=== PATIENT | female | born 1945 | race Caucasian/White ===

== ENCOUNTER 2018-09-15 18:22 | Inpatient (IN) | payer MEDICARE ==
[~2018-09-15] VITALS: Ht 154.9 cm; Wt 78.3 kg
[2018-09-15 19:15] LABS: Chloride (POC) 102 mmol/L (98-108); Creatinine (POC) 9.2 mg/dL (0.6-1.0); Glucose (ISTAT POC) 101 mg/dL (70-99); Hemoglobin (POC) 6.8 g/dL (12.0-16.0); Potassium (POC) 6.1 mmol/L (3.5-5.5); Sodium (POC) 138 mmol/L (135-148); Total CO2 (POC) 23 mmol/L (21-32)
[2018-09-15] MEDS ORDERED: Lopressor 25 mg25 MG PO (20:13)
[2018-09-15] MEDS ORDERED: Rena-Vite Tabl0.8 MG PO (20:15)
[2018-09-15] MEDS ORDERED: VITAMIN D250000 UNIT PO (20:24)
[2018-09-15 21:50] LABS: Albumin, Blood 2.7 g/dL (3.4-5.0); Albumin/Globulin Ratio 0.9 (0.8-1.8); Bilirubin, Total 0.5 mg/dL (0.1-1.0); Bun/Creatinine Ratio 13.9 (12.0-20.0); Calcium, Blood 7.3 mg/dL (8.5-10.1); Creatinine, Blood 8.85 mg/dL (0.40-1.00); Potassium, Blood 6.2 mmol/L (3.5-5.5); Total Protein, Blood 5.7 g/dL (6.4-8.2)
[2018-09-15 22:43] LABS: BASOPHILS ABSOLUTE AUTO 0.01 K/mm3 (0.00-0.23); BASOPHILS PERCENT AUTO 0 % (0-2); EOSINOPHILS PERCENT AUTO 0 % (0-6); Hematocrit 20.6 % (33.0-51.0); Hemoglobin 6.7 g/dL (11.5-16.0); IMMATURE GRAN ABSOLUTE AUTO 0.04 K/mm3 (0.00-0.10); IMMATURE GRAN PERCENT AUTO 0 % (0-1); LYMPHOCYTES ABSOLUTE AUTO 1.06 K/mm3 (0.84-5.20); LYMPHOCYTES PERCENT AUTO 10 % (21-46); MONOCYTES ABSOLUTE AUTO 0.97 K/mm3 (0.16-1.47); MONOCYTES PERCENT AUTO 9 % (4-13); Mean Corpuscular HGB 33.7 pg (26.0-34.0); Mean Corpuscular HGB Conc 32.5 g/dL (31.5-36.5); Mean Corpuscular Volume 104 fL (80-100); Mean Platelet Volume 13.6 fL (9.1-12.4); NEUTROPHILS ABSOLUTE AUTO 8.85 K/mm3 (1.96-9.15); NEUTROPHILS PERCENT AUTO 81 % (41-73); Platelet Count 125 K/mm3 (150-400); RDW Standard Deviation 55.9 fL (35.1-46.3); Red Blood Cell Count 1.99 M/mm3 (3.80-5.20); White Blood Cell Count 10.93 K/mm3 (4.00-11.30)
[2018-09-15 23:38] LABS: Hematocrit 26.3 % (33.0-51.0); Hemoglobin 8.9 g/dL (11.5-16.0)
--- NOTE | 2018-09-16 00:13 | NUR ---
DIALYSIS STAT TX ORDERED FOR PT. HYPOTENSIVE. FLUID OVERLOAD. R/O GI BLEED. ELEVATED POTASSIUM, AND LOW HGB. GAVE 2 UNITS OF PRBC WITH TX. WHEN BP DROPPED IN THE 50'S SOPHIE. DR NICHOLSON ORDERED 1 LITER BOLUS OF SALINE AND DC TX.
--- NOTE | 2018-09-16 02:19 | NUR ---
ASSUMED PT CARE AT 2050 PT ARRIVED ON UNIT VIA STRETCHER; SBP 80'S. PT NEEDED TO USE THE RESTROOM UPON ARRIVAL. DENIED ANY DIZZINESS OR LIGHTHEADEDNESS. TWO PERSON STAND PIVOT TO BSC. PT HAD WATERY DARK, MAROON STOOL WITH CLOTS NOTED; TOTAL MEASURED STOOL WAS 200. ASSISTED BACK TO BED AFTER ILIANA CARE WAS PERFORMED. VITAL SIGNS OBTAINED WITH SBP 59. INITIATED 500CC BOLUS PER ARAGON ORDERS. PT ALERT AND ORIENTED X4; ABLE TO MAKE NEEDS KNOWN. PT STATES HER BP IS GENERALLY HIGH PRIOR TO DIALYSIS AND LOW AFTER DIALYSIS, BUT SHE IS NOT CHRONICALLY LOW. ATA, ADVERTISING OPERATIONS MANAGER, IN ROOM AT BEDSIDE PREPARING DIALYSIS MACHINE AT 2114. DR. NICHOLSON AT BEDSIDE AT 2129 UPDATING PT ON EXPECTED COURSE OF TREATMENTS. DR. NICHOLSON VERBALLY ORDERED TO TRANSFUSE PT IS HER HEMOGLOBIN WAS BETWEEN 7-8; PLACED NURSING NOTIFY TO TRANSFUSE WITH 2 UNITS IF UNDER 8. DIALYSIS STARTED AT 2207 WITH PT ALSO RECEIVING FIRST UNIT OF BLOOD; DR. NICHOLSON WANTS PT TO HAVE A TOTAL OF 2 UNITS TRANSFUSED DURING DIALYSIS. DIALYSIS TERMINATED EARLY D/T SBP'S 50'S WITH MAP'S LOW 40'S; BHARAT NOTIFIED AND ORDERED 1L BOLUS AND ALBUMIN. PT HAS HAD A TOTAL OF 2 STOOLS SINCE ADMIT; BOTH DARK MAROON WITH CLOTS NOTED. PT HAS HAD A TOTAL OF 1.5L BOLUSED SINCE ADMIT TO THE UNIT D/T LOW BP'S AND LOW MAP'S; CALCIUM GLUCONATE INFUSED; ALBUMIN; 2 UNITS PRBC'S; DESMOPRESSIN; AND MAINTENANCE NS AT 75MLS/HR. PROTONIX IS ALSO INFUSING AT 10MLS/HR. SBP'S ARE FINALLY IN THE 90-100'S. MAP STILL REMAINS BORDERLINE AT 60. CALL LIGHT IS WITHIN REACH. PT IS PLEASANT AND COOPERATIVE WITH CARE. ABLE TO MAKE NEEDS KNOWN.
[2018-09-16 04:25] LABS: Adenovirus F 40/41 Not Detected (NOT DETECT); Astrovirus Not Detected (NOT DETECT); Campylobacter Sp Not Detected (NOT DETECT); Cryptosporidium Not Detected (NOT DETECT); Cyclospora Cayetanensis Not Detected (NOT DETECT); E. Coli O157 Not Detected (NOT DETECT); Entamoeba Histolytica Not Detected (NOT DETECT); Enteroaggregative E. coli-EAEC Not Detected (NOT DETECT); Enteropathogenic E. coli-EPEC Not Detected (NOT DETECT); Enterotoxigenic E. coli-ETEC Not Detected (NOT DETECT); Giardia Lamblia Not Detected (NOT DETECT); Norovirus GI/GII Not Detected (NOT DETECT); Plesiomonas Shigelloides Not Detected (NOT DETECT); Rotavirus A Not Detected (NOT DETECT); Salmonella Sp Not Detected (NOT DETECT); Sapovirus Not Detected (NOT DETECT); Shiga Toxin-prod E. coli-STEC Not Detected (NOT DETECT); Shigella/Enteroin E. coli-EIEC Not Detected (NOT DETECT); Vibrio Cholerae Not Detected (NOT DETECT); Vibrio Sp Not Detected (NOT DETECT); Yersinia Enterocolitica Not Detected (NOT DETECT)
--- NOTE | 2018-09-16 05:00 | NUR ---
NOTIFIED DR. NICHOLSON REGARDING CONSISTENT LOW BP'S. NEW ORDERS FOR STAT LABS, WHICH WERE CURRENTLY BEING DRAWN, WELL TO INCREASE NS FROM 75MLS/HR TO 125MLS/HR, WELL TO UPDATE WITH LAB RESULTS.
[2018-09-16 05:04] LABS: Hematocrit 24.4 % (33.0-51.0); Hemoglobin 7.9 g/dL (11.5-16.0); Mean Corpuscular HGB Conc 32.4 g/dL (31.5-36.5); Mean Platelet Volume 12.4 fL (9.1-12.4); Platelet Count 90 K/mm3 (150-400); RDW Coefficient Variation 16.5 % (11.7-14.2); RDW Standard Deviation 58.5 fL (35.1-46.3); Red Blood Cell Count 2.47 M/mm3 (3.80-5.20); White Blood Cell Count 9.32 K/mm3 (4.00-11.30)
[2018-09-16 05:38] LABS: Alanine Aminotransfer (ALT/SGP 16 U/L (12-78); Albumin/Globulin Ratio 1.2 (0.8-1.8); Alk Phos 78 U/L (50-136); Anion Gap 14 mmol/L (6-16); Aspartate Aminotrans (AST/SGOT 13 U/L (12-37); Bilirubin, Total 0.6 mg/dL (0.1-1.0); Blood Urea Nitrogen 80 mg/dL (8-24); Bun/Creatinine Ratio 12.4 (12.0-20.0); CO2, Blood 24 mmol/L (21-32); Calcium, Blood 7.5 mg/dL (8.5-10.1); Chloride, Blood 106 mmol/L (98-108); Creatinine, Blood 6.44 mg/dL (0.40-1.00); Globulin, Blood 2.6 g/dL (2.2-4.0); Glomerular Filtration Rate 7 (60-); Glucose, Blood 110 mg/dL (70-99); Magnesium, Blood 1.7 mg/dL (1.6-2.4); Phosphorus, Blood 3.3 mg/dL (2.5-4.9); Sodium, Blood 144 mmol/L (136-145); Total Protein, Blood 5.6 g/dL (6.4-8.2)
[2018-09-16 05:47] LABS: Mean Corpuscular Volume 99 fL (80-100)
--- NOTE | 2018-09-16 06:00 | NUR ---
CALL PLACED TO DR. NICHOLSON UPDATED ON LAB RESULTS AND CONTINUOUS LOW BP'S. NEW ORDERS FOR ONE AMP CALCIUM GLUCONATE; ONE UNIT OF PRBC'S; WITH STAT H&H POST TRANSFUSION; WELL TO KEEP NS AT 125MLS/HR, BUT TURN OFF DURING BLOOD TRANSFUSION, THEN RESUME AT 75MLS/HR.
--- NOTE | 2018-09-16 06:10 | NUR ---
DR. ARAGON AT BEDSIDE ASSESSING PT. NO NEW ORDERS. STATES DR. NICHOLSON CAN KEEP MANAGING PT'S FLUIDS AND BLOOD PRODUCT TO MAINTAIN BLOOD PRESSURES. AWARE OF CONSISTENT LOW BP'S. PT REMAINS ALERT AND ORIENTED AND ABLE TO MAKE HER NEEDS KNOWN.
--- NOTE | 2018-09-16 06:21 | NUR ---
END OF SHIFT SUMMARY PT HAS CONTINUED HAVING LOOSE, WATERY DARK, MAROON STOOL WITH CLOTS NOTED; APPROXIMATELY 100-200CC EVERY TIME. PT HAS BEEN USING BEDPAN FOR SAFETY AND IS UNDERSTANDING. PROTONIX CONTINUES TO INFUSE AT 10MLS/HR; NS INFUSING AT 125MLS/HR. PT PLACED ON CONTACT ISOLATION PRECAUTIONS D/T GI PANEL COMING BACK POSTIVE FOR C.DIFF; PT UNDERSTANDING OF PRECAUTIONS THAT ARE NECESSARY. CALL LIGHT WITHIN REACH; PT ABLE TO MAKE NEEDS KNOWN; REMAINS ALERT AND ORIENTED.
--- NOTE | 2018-09-16 08:12 | NUR ---
ASSUMED CARE ASSUMED CARE OF PT AT 0700. REPORT RECEIVED FROM ALEM PACHECO. PT IN BED, SLEEPY BUT AROUSES EASILY TO VERBAL STIMULUS, ORIENTED WHEN AWAKE. MONITOR SHOWS SINUS TACH WITH HR 100-110'S, SBP 70-80'S. PT RECEIVING 3RD UNIT OF PRBC'S, PROTONIX GTT. PT REPORTING CRAMPING ABDOMINAL PAIN, DENIES OTHER PAIN, DENIES SHORTNESS OF BREATH. RECTAL TUBE INSERTED - BRIGHT RED LIQUID RETURN. PT HAS LEFT EJ IV AND R WRIST IV. PT USING CALL LIGHT FOR NEEDS. WILL CONTINUE TO MONITOR CLOSELY.
--- NOTE | 2018-09-16 08:21 | NUR ---
DR. BHARAT NICHOLSON ROUNDED ON PT. ORDERS RECEIVED TO FINISH 3RD UNIT OF BLOOD AND THEN DRAW STAT H&H.
--- NOTE | 2018-09-16 08:21 | NUR ---
DR. TANG ROUNDED ON PT.
[2018-09-16 09:49] LABS: Hematocrit 26.6 % (33.0-51.0); Hemoglobin 8.8 g/dL (11.5-16.0)
[2018-09-16 10:04] LABS: Bun/Creatinine Ratio 12.5 (12.0-20.0); Calcium, Blood 7.6 mg/dL (8.5-10.1); Creatinine, Blood 6.74 mg/dL (0.40-1.00); Potassium, Blood 5.1 mmol/L (3.5-5.5)
[2018-09-16 10:26] LABS: International Normalized Ratio 1.07; Prothrombin Time Results 11.3 Sec (9.7-11.5)
--- NOTE | 2018-09-16 12:29 | NUR ---
ANESTHESIA WOULD LIKE PT TO RECEIVE 2 MORE UNITS PRBC PRIOR TO ENDOSCOPY DUE TO ONGOING HYPOTENSION. BLOOD BANK NOTIFIED AND AWAITING BLOOD SLIPS AT THIS TIME.
--- NOTE | 2018-09-16 13:49 | NUR ---
DR. DONNA THOMPSON ROUNDED ON PT. PLAN TO COMPLETE TRANSFUSION OF 4TH UNIT OF BLOOD AND THEN RE-CHECK H&H. PT CURRENTLY TOO UNSTABLE FOR ANESTHESIA FOR ENDOSCOPY. IF HEMOGLOBIN STABLE, PLAN FOR ENDOSCOPY IN A.M., OTHERWISE PLAN TO TRANSFUSE 5TH UNIT AND PROCEED WITH ENDOSCOPY THIS EVENING. PT AGREEABLE TO PLAN OF CARE.
[2018-09-16 15:58] LABS: Hematocrit 27.1 % (33.0-51.0); Hemoglobin 9.2 g/dL (11.5-16.0)
--- NOTE | 2018-09-16 16:09 | NUR ---
DR. THOMPSON CALL TO DR. THOMPSON WITH UPDATE ON LAB RESULTS. ORDERS TO HOLD 5TH UNIT OF PRBC'S AT THIS TIME AND RE-CHECK H&H AT 2000 TONIGHT. PT MAY HAVE CLEAR LIQUIDS. PLAN FOR PROBABLE ENDOSCOPY IN THE MORNING.
--- NOTE | 2018-09-16 18:31 | NUR ---
SHIFT SUMMARY PT HAS REMAINED HYPOTENSIVE IN THE 80'S T/O SHIFT, THOUGH CONTINUES TO BE ALERT AND ORIENTED. PT HAS RECEIVED TOTAL OF [address] THOMPSON CONSULTED ON PT TODAY AND PLANS FOR ENDOSCOPY IN THE MORNING. PT HAS RECTAL TUBE IN PLACE DRAINING BLACK/RED LIQUID TO GRAVITY, 200 ML TOTAL OUTPUT FOR THE SHIFT. PT IS ANURIC AT BASELINE - NO URINE OUTPUT THIS SHIFT. PT CONTINUES WITH 2 PIV'S WITH NS AT 75ML/HR AND PROTONIX GTT INFUSING. PT USING CALL LIGHT APPROPRIATELY FOR NEEDS, POSITIONING SELF IN BED. SCD'S IN PLACE. WILL CONTINUE TO MONITOR PT AND GIVE HANDOFF REPORT TO ONCOMING RN WHEN AVAILABLE.
--- NOTE | 2018-09-16 19:29 | NUR ---
ASSUMED CARE PT SITTING UP IN BED, CURRENTLY A&0 X 3, DENIES COMPLAINTS. REPORTS BEING SICK SINCE LAST WEDNESDAY. PT NPO AT MIDNIGHT WITH EGD PLANNED FOR TOMORROW IF BP AND LABS REMAIN STABLE OVERNIGHT. RECTAL TUBE IN PLACE WITH DARK MAROON FLUID IN BAG. NS AT 75ML/HR AND PROTONIX AT 10ML/HR. BP LOW BUT PER AM RN, MD'S AWARE AND NOT CONCERNED LONG PT REMAINS ALERT/ORIENTED, ECG SHOWS SR/ST AND SPOT CHECK O2 SATS AT 100%.
[2018-09-16 20:10] LABS: Hematocrit 27.8 % (33.0-51.0); Hemoglobin 9.2 g/dL (11.5-16.0)
[2018-09-17 03:20] LABS: Hematocrit 25.8 % (33.0-51.0); Hemoglobin 8.3 g/dL (11.5-16.0); Mean Corpuscular HGB 31.1 pg (26.0-34.0); Mean Corpuscular HGB Conc 32.2 g/dL (31.5-36.5); Mean Corpuscular Volume 97 fL (80-100); Mean Platelet Volume 12.9 fL (9.1-12.4); NRBC ABSOLUTE 0.03 K/mm3 (0.00-0.02); NRBC Auto 0.4 /100 WBC (0.0-0.2); Platelet Count 64 K/mm3 (150-400); RDW Coefficient Variation 17.3 % (11.7-14.2); Red Blood Cell Count 2.67 M/mm3 (3.80-5.20); White Blood Cell Count 6.73 K/mm3 (4.00-11.30)
[2018-09-17 03:35] LABS: Albumin, Blood 2.6 g/dL (3.4-5.0); Anion Gap 11 mmol/L (6-16); Blood Urea Nitrogen 91 mg/dL (8-24); Bun/Creatinine Ratio 11.6 (12.0-20.0); CO2, Blood 24 mmol/L (21-32); Calcium, Blood 7.1 mg/dL (8.5-10.1); Chloride, Blood 107 mmol/L (98-108); Creatinine, Blood 7.84 mg/dL (0.40-1.00); Glomerular Filtration Rate 5 (60-); Glucose, Blood 82 mg/dL (70-99); Magnesium, Blood 1.6 mg/dL (1.6-2.4); Phosphorus, Blood 3.4 mg/dL (2.5-4.9); Potassium, Blood 4.9 mmol/L (3.5-5.5); Sodium, Blood 142 mmol/L (136-145)
--- NOTE | 2018-09-17 04:31 | NUR ---
UPDATE BP LOW WITH SLEEP WITH SBP 70-80. WHEN AWAKE SBP 90-100. PT REMAINS ASYMPTOMATIC, IS A&O X 4 WAKES TO VOICE AND USES CALL LIGHT APPROPRIATELY.
--- NOTE | 2018-09-17 06:47 | NUR ---
SHIFT SUMMARY NO ACUTE EVENTS OVERNIGHT. PT HAS HAD MINIMAL OUTPUT FROM RECTAL TUBE. PT DOES COMPLAINT OF BURNING TYPE ABD PAIN THAT TRAVELS FROM LEFT MIDDLE QUADRANT TO RIGHT AND PT REPORTS PAIN INCREASES AFTER EATING. PROTONIX CONTINUES AT 10ML/HR AND NS AT 75ML/HR. DR NICHOLSON REVIEWED LABS THIS AM AND ENTERED ORDER FOR 1 UNIT PRBC'S WITH DIALYSIS TODAY. BP REMAINS LOW, ESPECIALLY WITH SLEEP BUT RETURNS TO SBP'S 90-100 WHEN AWAKE, ECG SHOWS SR AND SPOT CHECK O2 SATS 98-100% ON RA.
--- NOTE | 2018-09-17 08:04 | NUR ---
INITIAL ASSESSMENT PATIENT RESTING QUIETLY IN BED UPON ENTERING ROOM. PATIENT ALERT AND ORIENTED X 4, AFEBRILE. PATIENT ON BEDREST HAS BEEN HYPOTENSIVE. PATIENT STATES THAT SHE HAS NO PAIN AT THIS TIME BUT THAT SHE HAS ABOMINAL BURNING INTERMITTENTLY, THAT BECOMES WORSE AFTER EATING. PATIENT SATTING WELL ON RA. DENIES COUGH. SHALLOW BREATHS NOTED. LUNGS CLEAR IN UPPER LOBES AND DIMINISHED IN LOWER LOBES. PATIENT IN SR, HR 70S TO 80S. MAP OVER 65. PULSES STRONG. TRACE PEDAL EDEMA NOTED. SCDS IN PLACE. HYPERACTIVE BS NOTED. RECTAL TUBE IN PLACE, DRAINING RED/ BLACK LIQUID STOOL. PATIENT ANURIC AT BASELINE. BRUISE NOTED TO L SCRUGGS, ABRASION TO R FOOT. AGUILA FISTULA PRESENT- + BRUIT AND THRILL NOTED. PROTONIX DRIP INFUSING AT 10 MLS/ HOUR, NS INFUSING AT 75 MLS/ HOUR. PATIENT HAS BEEN NPO FOR POSSIBLE SCOPE THIS AM. BED LOW, CALL LIGHT IN REACH. WILL CONTINUE TO MONITOR PATIENT FREQUENTLY THROUGHOUT SHIFT.
--- NOTE | 2018-09-17 08:10 | NUR ---
DR. TANG, DR. NICHOLSON, AND DR. THOMPSON HAVE ALL BEEN IN TO SEE PATIENT THIS AM.
--- NOTE | 2018-09-17 08:20 | NUR ---
PATIENT HAD ASYMPTOMATIC, 10 BEAT RUN OF VTACH. DR. THOMPSON AWARE. WILL CONTINUE TO MONITOR.
--- NOTE | 2018-09-17 11:31 | NUR ---
PATIENT REMAINS ALERT AND ORIENTED X 4, AFEBRILE. PATIENT WATCHING TV WITH NO COMPLAINTS. PATIENT REMAINS SATTING WELL ON RA. PATIENT IN SR, HR 70S TO 80S. PATIENT HYPOTENSIVE. MAP OF 57. SBP IN THE 80S. DR'S ARE AWARE OF PATIENT'S LOW BP. NO ACUTE CHANGES TO NOTE ON AT THIS TIME. WILL CONTINUE TO MONITOR.
--- NOTE | 2018-09-17 11:38 | NUR ---
PT BROUGHT INTO PROCEDURE ROOM DUE TO ISOLATION STATUS. Patient confirms NPO status and agrees with scheduled surgery. History, Chart, Medications and Allergies reviewed before start of procedure. MAC CASE, PT ICU STATUS. CONFIRMED WITH BOTH DR. THOMPSON AND DR. FERGUSON PT STABLE TO BE BROUGHT TO THE DEPATRMENT FOR PROCEDURE.
--- NOTE | 2018-09-17 11:40 | NUR ---
PATIENT JUST LEFT UNIT WITH RN TO GO TO SCOPE.
--- NOTE | 2018-09-17 11:45 | NUR ---
09/17/18 1145 Wendie Nunez History, Chart, Medications and Allergies reviewed before start of procedure.ANETHESIA CASE WITH DR. FERGUSON
--- NOTE | 2018-09-17 12:21 | NUR ---
PATIENT RETURNED WITH NURSE FROM SCOPE. PATIENT ALERT AND ORIENTED X 4. VSS. WILL CONTINUE TO MONITOR. DR. THOMPSON IN TO SEE PATIENT.
--- NOTE | 2018-09-17 13:45 | NUR ---
DIALYSIS NURSE IN ROOM.
--- NOTE | 2018-09-17 16:33 | NUR ---
PATIENT RESTING QUIETLY IN BED, WATCHING TV. PATIENT RECEIVING DIALYSIS. GAS WELDER APPRENTICE IN ROOM WITH PATIENT. PATIENT AFEBRILE. PATIENT STATES THAT SHE HAS NOT HAD ANY ABDOMINAL TENDERNESS OR BURNING SINCE SCOPE PROCEDURE PERFORMED EARLIER IN SHIFT. PATIENT IN SB TO SR, HR 50S TO 60S. BP STABLE- IMPROVED SINCE SCOPE PROCEDURE PERFORMED. IV REMOVED FROM R WRIST AREA TENDER, REDDENED AND SWOLLEN. PATIENT STATES STARTED TO APPEAR THIS WAY AFTER RETURNING FROM SCOPE. HAND ELEVATED ON PILLOW AND WARM COMPRESS PLACED. WILL CONTINUE TO MONITOR SITE.
--- NOTE | 2018-09-17 18:00 | NUR ---
RIGHT HAND, PREVIOUS IV SITE, APPEARS TO BE IMPROVING. LESS RED AND SWOLLEN AFTER ELEVATING AND PLACING WARM COMPRESS. PATIENT STATES THAT IT ALSO FEELS BETTER AND LESS TENDER. PATIENT INFORMED TO INFORM NURSE IF SEEMS TO BE GETTING WORSE.
--- NOTE | 2018-09-17 18:25 | NUR ---
SHIFT SUMMARY PATIENT REMAINED ALERT AND ORIENTED X 4, AFEBRILE. PATIENT STATES THAT SHE HAS NOT HAD ANY PAIN IN HER STOMACH SINCE HER SCOPE. PATIENT TOLERATED 1 PA WITHOUT FEELING DIZZY WHEN TRANSFERRING TODAY. PATIENT REMAINED SATTING WELL ON RA. NO COUGH NOTED. PATIENT REMAINED IN SB TO SR, HR 50S TO 80S. BP STABLE NOW BUT MAP 50S TO 60S THIS AM BEFORE SCOPE. DR. THOMPSON STATED THAT A COUPLE PLACES CAUTERIZED DURING SCOPE PROCEDURE. PATIENT REMAINED ANURIC. NS INFUSING AT 75 MLS/ HOUR. PATIENT RECEIVED 1 AMP CALCIUM GLUCONATE THIS AM FOR CALCIUM OF 7.1. PATIENT RECEIVED DIALYSIS WITH A NET OF 1400CC TAKEN OFF. PATIENT RECEIVED ALBUMIN AND 1 UNIT PRBCS DURING DIALYSIS. PATIENT TOLERATED CLEAR LIQUID DINNER WELL WITH NO PAIN OR NAUSEA AT THIS TIME. BED LOW, CALL LIGHT IN REACH. WILL CONTINUE TO MONITOR FREQUENTLY UNTIL REPORT GIVEN TO ONCOMING HIGHWAY DESIGN ENGINEER NURSE SHORTLY.
--- NOTE | 2018-09-17 20:06 | NUR ---
CARE ASSUMED CARE AND REPORT ASSUMED FROM RONNIE FERRARA. PT SITTING UP IN BED WATCHING TV. DENIES PAIN AT THIS TIME. DENIES NAUSEA. VSS. NSR, HR 90S. MAP GREATER THAN 60. MIV NS INFUSING AT 75 ML/HR PER ORDER. RECTAL TUBE SECURED AND PATENT; BLACK-RED OUTPUT. PT A/O X 3, CALM AND COOPERATIVE. CALL LIGHT WITHIN REACH. WILL CONTINUE TO MONITOR.
--- NOTE | 2018-09-17 23:21 | NUR ---
REASSESSMENT VSS. PT C/O OF DIFFUSE ABDOMINAL PAIN WITHOUT NAUSEA. T.O. OBTAINED FROM MD JACOBO FOR FENTANYL 25-50 MCG PRN. 25 MCG IVP GIVEN AND WILL REASSESS PAIN. ASSISTED PT WITH TURNING. MIV NS REMAINS INFUSING AT 75 ML/HR PER ORDER. WILL CONTINUE TO MONITOR.
[2018-09-18 03:29] LABS: Hematocrit 28.3 % (33.0-51.0); Hemoglobin 9.4 g/dL (11.5-16.0)
[2018-09-18 03:49] LABS: Albumin, Blood 2.9 g/dL (3.4-5.0); Anion Gap 10 mmol/L (6-16); Blood Urea Nitrogen 51 mg/dL (8-24); Bun/Creatinine Ratio 8.8 (12.0-20.0); CO2, Blood 27 mmol/L (21-32); Calcium, Blood 7.6 mg/dL (8.5-10.1); Chloride, Blood 103 mmol/L (98-108); Creatinine, Blood 5.81 mg/dL (0.40-1.00); Glomerular Filtration Rate 8 (60-); Glucose, Blood 106 mg/dL (70-99); Magnesium, Blood 1.6 mg/dL (1.6-2.4); Phosphorus, Blood 3.1 mg/dL (2.5-4.9); Potassium, Blood 4.1 mmol/L (3.5-5.5); Sodium, Blood 140 mmol/L (136-145)
--- NOTE | 2018-09-18 04:00 | NUR ---
REASSESSMENT PT SLEEPING AT THIS TIME AND APPEARS COMFORTABLE. IN NO ACUTE DISTRESS. MIV NS INFUSING AT 75 ML/HR. CALL LIGHT WITHIN REACH. PT TURNS SELF IN BED. WILL CONTINUE TO MONITOR.
--- NOTE | 2018-09-18 05:49 | NUR ---
SHIFT SUMMARY PT SLEPT OFF/ON DURING NIGHT. VSS ENTIRE SHIFT WITH MAP GREATER THAN 60. C/O ABDOMINAL PAIN ONE TIME AND WAS GIVEN FENTANYL 25 MCG IVP ONE TIME. RECTAL TUBE REMAINED SECURED WITH ONLY 50 ML OUTPUT. AFEBRILE ENTIRE SHIFT. AM LABS COMPLETED. PT A/O X 3 ENTIRE SHIFT. NS MIV CONTINUES TO INFUSE AT 75 ML/HR PER ORDER. WILL GIVE BEDSIDE, HANDOFF REPORT TO DAY RN.
--- NOTE | 2018-09-18 06:48 | NUR ---
VOMITING EPISODE AT 0600, PT SUDDENLY BECAME NAUSEATED AND HAD 900 ML OUT OF BLOODY EMESIS WITH CLOTS. PT GIVEN ZOFRAN 4 MG IVP AND LINENS CHANGED. BP LOW SINCE EMESIS EPISODE. PT REMAINS A/O X 3. MD THOMPSON CALLED AND UPDATED. T.O. TO MAKE PT NPO AND CONTACT SURGICAL TEAM FOR REPEAT SCOPE AT 0800.
[2018-09-18 07:12] LABS: BASOPHILS ABSOLUTE AUTO 0.02 K/mm3 (0.00-0.23); BASOPHILS PERCENT AUTO 0 % (0-2); EOSINOPHILS ABSOLUTE AUTO 0.04 K/mm3 (0.00-0.68); EOSINOPHILS PERCENT AUTO 1 % (0-6); Hematocrit 25.8 % (33.0-51.0); Hemoglobin 8.5 g/dL (11.5-16.0); IMMATURE GRAN ABSOLUTE AUTO 0.05 K/mm3 (0.00-0.10); IMMATURE GRAN PERCENT AUTO 1 % (0-1); LYMPHOCYTES ABSOLUTE AUTO 0.73 K/mm3 (0.84-5.20); LYMPHOCYTES PERCENT AUTO 9 % (21-46); MONOCYTES ABSOLUTE AUTO 0.74 K/mm3 (0.16-1.47); MONOCYTES PERCENT AUTO 9 % (4-13); Mean Corpuscular HGB 31.5 pg (26.0-34.0); Mean Corpuscular HGB Conc 32.9 g/dL (31.5-36.5); Mean Corpuscular Volume 96 fL (80-100); Mean Platelet Volume 12.8 fL (9.1-12.4); NEUTROPHILS ABSOLUTE AUTO 6.97 K/mm3 (1.96-9.15); NEUTROPHILS PERCENT AUTO 82 % (41-73); NRBC ABSOLUTE 0.04 K/mm3 (0.00-0.02); NRBC Auto 0.5 /100 WBC (0.0-0.2); Platelet Count 77 K/mm3 (150-400); RDW Coefficient Variation 16.5 % (11.7-14.2); RDW Standard Deviation 54.6 fL (35.1-46.3); White Blood Cell Count 8.55 K/mm3 (4.00-11.30)
--- NOTE | 2018-09-18 07:40 | NUR ---
INITIAL ASSESSMENT PATIENT RESTING IN BED QUIETLY UPON ENTERING ROOM. PATIENT ALERT AND ORIENTED X 4, AFEBRILE. PATIENT CALM AND COOPERATIVE. PATIENT STATES THAT SHE HAS SOME BURNING PAIN IN HER MID ABDOMEN REGION THAT COMES AND GOES. PATIENT STATES PAIN IS MANAGEABLE AT THIS TIME. PATIENT SATTING WELL ON RA. LUNGS CLEAR IN UPPER LOBES AND DIMINISHED IN LOWER LOBES. SHALLOW BREATHS NOTED. DENIES COUGH. PATIENT IN SR. MURMUR NOTED. HR 70S TO 80S. PATIENT HYPOTENSIVE SINCE VOMITED [address] THOMPSON NOTIFIED BY NIGHT NURSE. INFORMED TO KEEP NPO AND WILL SCOPE PATIENT AGAIN THIS AM. PULSES STRONG. TRACE PEDAL EDEMA NOTED. SCDS IN PLACE. ABDOMEN TENDER WITH PALPATION, SOFT, WITH HYPERACTIVE BS NOTED. RECTAL TUBE DRAINING SMALL AMOUNT OF BLACK, LIQUID STOOL. PATIENT HAS BEEN RECEIVING PO VANCO FOR C.DIFF. PATIENT ANURIC AT BASELINE IS DIALYSIS PATIENT. AGUILA FISTULA NOTED- + BRUIT AND THRILL. BRUISE TO L SCRUGGS, ABRASION TO R FOOT. R WRIST REDDENED AND TENDER TO TOUCH- IV REMOVED YESTERDAY. SITE DOES APPEAR IMPROVED FROM YESTERDAY. DR. HAINES INFORMED AND JUST IN ROOM WITH PATIENT. NS INFUSING AT 75 MLS/ HOUR. BED LOW, CALL LIGHT IN REACH. WILL CONTINUE TO MONITOR PATIENT FREQUENTLY THROUGHOUT SHIFT.
--- NOTE | 2018-09-18 07:47 | NUR ---
250 CC NS BOLUS GIVEN FROM 1 LITER BAG ALREADY HANGING. SBP WENT FROM 70S TO 90S. WILL CONTINUE TO MONITOR.
[2018-09-18 08:10] LABS: International Normalized Ratio 1.05; Prothrombin Time Results 11.1 Sec (9.7-11.5)
--- NOTE | 2018-09-18 09:36 | NUR ---
09/18/18 0936 Wendie Nunez History, Chart, Medications and Allergies reviewed before start of procedure.MAC CASE WITH DR. FERGUSON IN ICU 12
[2018-09-18 10:25] LABS: Hematocrit 24.6 % (33.0-51.0)
--- NOTE | 2018-09-18 10:43 | NUR ---
SCOPE COMPLETE AT 1000. PATIENT WENT INTO A. FIB WITH RVR, HR UP TO THE 160S DURING SCOPE. PATIENT SBP DOWN IN TO THE 60S. MAP 40S TO 50S. 1008: NURSE SPOKE WITH BICYCLE II ASSEMBLER ABOUT PATIENT'S CONDITION. DR. THOMPSON AND DR. VILLEGAS SPEAKING ABOUT PATIENT. PATIENT STATES THAT SHE ALSO HAS SOME CHEST PAIN. DR. THOMPSON STATES THAT PAIN COULD BE CAUSED BY CLAMP PLACEMENT DURING PROCEDURE. 1011: AGSTEN NOTIFIED OF PATIENT'S CHEST PAIN, INCREASED HR AND LOW BP. AGSTEN STATES TO CONSULT DR. VILLEGAS. EKG AND TROPONIN ORDERED BY DR. THOMPSON. 1041: 5 MG IV METOPROLOL GIVEN TO PATIENT. 0.25 MG IV DIGOXIN GIVEN TO PATIENT. 500 ML NS BOLUS STARTED. HR DECREASING TO THE 130S. SBP IN THE 70S. DR. VILLEGAS AWARE. PATIENT STATES THAT HER CHEST PAIN IS BETTER. WILL CONTINUE TO MONITOR.
--- NOTE | 2018-09-18 12:03 | NUR ---
PATIENT REMAINS ALERT AND ORIENTED, AFEBRILE. PATIENT STATES BURNING IN ABDOMEN IS MANAGEABLE AT THIS TIME. PATIENT STATES CHEST PAIN IS GONE. PATIENT ON [address] VILLEGAS[address] AMIODARONE BOLUS COMPLETE SHORT TIME AGO, NOW INFUSING AT 1 MG/ MINUTE. PATIENT IN SR TO ST, HR 90S TO LOW 100S. SBP IN THE 80S. DR. VILLEGAS AWARE. PATIENT'S IS IN ROOM WITH HER AT THIS TIME. NO OTHER ACUTE CHANGES TO NOTE ON AT THIS TIME. WILL CONTINUE TO MONITOR FREQUENTLY.
--- NOTE | 2018-09-18 13:20 | NUR ---
SPOKE TO DR. VILLEGAS ABOUT PATIENT'S CONTINUED SBP IN THE 80S AND MAP IN THE 50S. ORDERED FOR OT 500 CC NS BOLUS. ALSO STATED THAT BP OKAY LONG MAP 50 AND ABOVE AND PATIENT IS AWAKE, ALERT AND ORIENTED.
[2018-09-18] MEDS ORDERED: ASPI81CH PO (13:23)
[2018-09-18] MEDS ORDERED: Calcium Acetat667 MG PO (13:24)
[2018-09-18] MEDS ORDERED: CHLO4 PO (13:25)
[2018-09-18] MEDS ORDERED: NEPHRO-VITE RX1 EACH PO (13:28)
[2018-09-18] MEDS ORDERED: TUMS500 MG PO (13:29)
[2018-09-18] MEDS ORDERED: TUMS ULTRA ST1177 MG PO (13:30)
--- NOTE | 2018-09-18 13:30 | NUR ---
ECHOCARDIOGRAM COMPLETE
[2018-09-18] MEDS ORDERED: Tylenol325 MG PO (13:31)
--- NOTE | 2018-09-18 15:04 | NUR ---
BP CUFF CHANGED FROM RIGHT WRIST TO RIGHT LEG DR. VILLEGAS STATES THAT PATIENT IS TOO AWAKE AND ALERT TO HAVE SUCH A LOW BP. BP ON LEG SHOWS SBP OF 108 AND MAP OF [address] DR. VILLEGAS BELIEVES THIS IS SHOWING MORE OF A TRUE BP. CUFF WILL REMAIN ON LEG AT THIS TIME.
--- NOTE | 2018-09-18 15:07 | NUR ---
DR. VILLEGAS NOTIFIED OF INCREASE IN TROPONIN FROM 0.155 TO 0.294. NO ORDERS RECEIVED AT THIS TIME.
--- NOTE | 2018-09-18 16:00 | NUR ---
PATIENT RESTING QUIETLY IN BED, WATCHING TV. NO COMPLAINTS. PATIENT REMAINS HYPOTENSIVE, HOWEVER ALSO REMAINS ALERT AND ORIENTED X 4. DR. VILLEGAS AWARE OF BLOOD PRESSURE. PATIENT REMAINS IN SR, HR 70S TO 80S. AFEBRILE. PATIENT REMAINS SATTING WELL ON RA. NO OTHER ACUTE CHANGES TO NOTE ON AT THIS TIME. WILL CONTINUE TO MONITOR.
[2018-09-18 17:26] LABS: Hematocrit 21.5 % (33.0-51.0)
--- NOTE | 2018-09-18 17:28 | NUR ---
MANUAL BP TAKEN ON PATIENT. UNABLE TO HEAR GOOD ENOUGH. DOPPLER USED. SBP OF 70 OBTAINED. PATIENT STILL REMAINS ALERT AND ORIENTED X 4. DOCTOR NELLY AWARE. STATED WE WILL WAIT AND SEE WHAT THE NEXT H AND H BEFORE CHANGING ANYTHING.
--- NOTE | 2018-09-18 18:52 | NUR ---
SHIFT SUMMARY PATIENT HAS REMAINED ALERT AND ORIENTED T/O SHIFT. PATIENT CALM, COOPERATIVE AND PLEASANT. PATIENT AFEBRILE. PATIENT HAS REMAINED A LITTLE WEAK BUT ABLE TO MOVE ALL EXTREMITIES AND REPOSITION SELF IN BED. PATIENT STATES THAT AT TIMES HER STOMACH HAS SOME BURNING PAIN BUT DID NOT HAVING ANY COMPLAINTS THAT IT WAS UNMANAGEABLE DURING THE DAY. PATIENT HAD EPISODE DURING/ AFTER SCOPE WHEN SHE WENT INTO A. FIB WITH RVR, HYPOTENSIVE AND COMPLAINED OF CHEST DISCOMFORT. DR. VILLEGAS CONSULTED. PATIENT WAS PLACED ON 02, GIVEN IV METOPROLOL, IV DILTIAZEM AND STARTED ON AMIO BOLUS AND INFUSION. PATIENT'S HR HAS COME DOWN SINCE AND HAS BEEN IN THE 70S TO 80S. PATIENT BACK IN SR. PATIENT TITRATED BACK DOWN TO RA AFTER RATE CONTROLLED AND HAS BEEN SATTING WELL SINCE. PATIENT BP CUFF CHANGED TO LEG CONTINUED TO BE HYPOTENSIVE DESPITE BEING COMPLETELY ALERT AND ORIENTED. BP SHOWED NORMOTENSION FOR SHORT TIME BUT BEGAN HURTING PATIENT SO PLACED BACK ON R WRIST. NURSE TOOK MANUAL PRESSURE WITH DOPPLER AND SBP OF [address] VILLEGAS WAS INFORMED. HEMOGLOBIN CAME BACK LOWERED AT 7.0. 1 UNIT PRBCS ORDERED AND WILL BE ADMINISTERED. PATIENT HAD 100 ML BLACK LIQUID STOOL OUT FROM RECTAL TUBE. PATIENT HAS REMAINED NPO EXCEPT FOR MEDS. PATIENT REMAINS ANURIC. NO CHANGES IN SKIN TO NOTE. NS INFUSING AT 75 MLS/ HOUR. AMIODARONE INFUSING AT 0.5 MG/ MINUTE. 1 CLIP PLACED TO DIEULAFOY'S LESION DURING SCOPE THIS AM. PATIENT GIVEN ALBUMIN X 2 TODAY AND A COUPLE NS BOLUSES. PATIENT HAS NO COMPLAINTS AT THIS TIME. BED LOW, CALL LIGHT IN REACH. REPORT WILL BE GIVEN SHORTLY TO ONCOMING CERAMIC TILER NURSE.
--- NOTE | 2018-09-18 19:30 | NUR ---
ASSUMED CARE BEDSIDE REPORT RECIEVED. PT IS RESTING IN BED AWAKE, ALERT, AND ORIENTED. PT DENIES PAIN OR DISCOMFORT. PT ON ROOM AIR. VITAL SIGNS STABLE AT THIS TIME, SBP 70-90'S, DR VILLEGAS IS AWARE AND WILL CONTINUE TO MONITOR. NS INFUSING AT 75 ML/HR, AMIODARONE AT 0.5 MG/MIN. 1 UNIT PRBC'S STARTED AT THIS TIME. DIALYSIS FISTULA NOTED TO AGUILA. PT WITH RECTAL TUBE IN PLACE WITH BLACK LOOSE OUTPUT NOTED. NO SIGNS OF MINA BLEEDING. PT REPORTS NO EMESIS SINCE THIS AM. WILL CONTINUE TO MONITOR.
[2018-09-18 22:37] LABS: Hematocrit 24.1 % (33.0-51.0); Hemoglobin 7.9 g/dL (11.5-16.0)
[2018-09-19 04:06] LABS: Hematocrit 24.1 % (33.0-51.0); Hemoglobin 7.7 g/dL (11.5-16.0)
[2018-09-19 04:08] LABS: BASOPHILS ABSOLUTE AUTO 0.01 K/mm3 (0.00-0.23); BASOPHILS PERCENT AUTO 0 % (0-2); EOSINOPHILS PERCENT AUTO 2 % (0-6); Hematocrit 23.4 % (33.0-51.0); Hemoglobin 7.7 g/dL (11.5-16.0); IMMATURE GRAN ABSOLUTE AUTO 0.04 K/mm3 (0.00-0.10); IMMATURE GRAN PERCENT AUTO 1 % (0-1); LYMPHOCYTES ABSOLUTE AUTO 0.92 K/mm3 (0.84-5.20); LYMPHOCYTES PERCENT AUTO 14 % (21-46); MONOCYTES ABSOLUTE AUTO 0.78 K/mm3 (0.16-1.47); MONOCYTES PERCENT AUTO 12 % (4-13); Mean Corpuscular HGB 32.4 pg (26.0-34.0); Mean Corpuscular HGB Conc 32.9 g/dL (31.5-36.5); Mean Corpuscular Volume 98 fL (80-100); NEUTROPHILS ABSOLUTE AUTO 4.84 K/mm3 (1.96-9.15); NEUTROPHILS PERCENT AUTO 72 % (41-73); Platelet Count 77 K/mm3 (150-400); RDW Coefficient Variation 17.1 % (11.7-14.2); RDW Standard Deviation 54.8 fL (35.1-46.3); Red Blood Cell Count 2.38 M/mm3 (3.80-5.20); White Blood Cell Count 6.69 K/mm3 (4.00-11.30)
[2018-09-19 04:14] LABS: Mean Platelet Volume 13.2 fL (9.1-12.4)
[2018-09-19 04:31] LABS: Albumin, Blood 2.4 g/dL (3.4-5.0); Anion Gap 10 mmol/L (6-16); Blood Urea Nitrogen 75 mg/dL (8-24); Bun/Creatinine Ratio 10.5 (12.0-20.0); CO2, Blood 24 mmol/L (21-32); Calcium, Blood 6.7 mg/dL (8.5-10.1); Chloride, Blood 106 mmol/L (98-108); Creatinine, Blood 7.12 mg/dL (0.40-1.00); Glomerular Filtration Rate 6 (60-); Glucose, Blood 98 mg/dL (70-99); Magnesium, Blood 1.6 mg/dL (1.6-2.4); Phosphorus, Blood 4.2 mg/dL (2.5-4.9); Potassium, Blood 4.6 mmol/L (3.5-5.5); Sodium, Blood 140 mmol/L (136-145)
--- NOTE | 2018-09-19 06:27 | NUR ---
SHIFT SUMMARY NO ACUTE CHANGES THIS SHIFT. PT HAS SLEPT WELL THROUHGOUT MOST OF THE NIGHT. PT AROUSES TO VERBAL STIMULI EASILY AND IS AWAKE, ALERT, AND ORIENTED. PT DENIES PAIN, NAUSEA, OR SOB THIS SHIFT. NO NEW SIGNS OF ACUTE GI BLEEDING. VITAL SIGNS HAVE REMAINED STABLE WITH SBP 70-90'S. PT ASYMPTOMATIC. NS INFUSING AT 75 ML/HR, AMIO GTT AT 0.5 MG/MIN. RECTAL TUBE REMAINS IN PLACE WITH BLACK TARRY OUTPUT NOTED. WILL CONTINUE TO MONITOR AND REPORT OFF TO ONCOMING RN.
--- NOTE | 2018-09-19 11:43 | NUR ---
0820 PT A/O, PLEASANT AND COOP. PT C/O OLD AND CHRONIC ABD. PAIN THAT COMES AND GOES WITH LUQ, MUQ, AND RLQ MOSTLY NOTED WITH PAIN. PT CONT TO HAVE OLD BLACK STOOL PASSING FROM RECTAL TUBE. TUBE PLACEMENT ASSESSED AND VARRIFIED. PT HAS AGUILA FISTULA NOTED AND INTACT. LIJ INFUSING WITH AMIODARONE GTT AND WILL ASSESS FOR ABILITY TO CHANGE TO PO IF PT CAN KEEP PO DOWN, THIS IS PER DR ARGUETA. PT BP IS LOW BUT PT DENIES ANY S/S OF DISTRESS.
--- NOTE | 2018-09-19 13:11 | NUR ---
1130 ITITIAL PAL CARE ASSESSMENT AND VISIT: Case conferenced with pt's RN and reviewed EMR prior to my visit. Introduced myself and gathered hx from pt. She lives in [place] with her . She has been on dialysis for some time and goes 3x/week in [place]. She was at her regularly scheduled tx on when she passed out at the dialysis clinic and was transported to [facility] and admitted due to GI Bleed. While here pt found to have a-fib with RVR, possible AL due to acute illness, pos. for c-diff and peptic ulcer still bleeding with repeat scope and procedure done yesterday. She reports long standing upper abd pain that seems to originate in her left upper abd and travels across to the r upper abd. She does not believe that she has been on any medication for peptic ulcers or preventative medication prior to this hospital stay and in reviewing her home medication list that appears to be correct. Pt is alert and oriented and seems to have good insight into her health issues. She reports feeling very tired after dialysis but feels her quality of life and function is very good otherwise. She doesn't know if she has completed and AD or POLST in [place] but states her is her surrogate decision maker. I offered to give her the blank forms to review and take back home with her and she said she would get them in [place]. We reviewed her current code status and I confirmed that our FULL CODE orders are in agreement with the patients wishes at this time. She stated, "I know there will come a time when I say, 'just let me go' but I am not there yet." We discussed possible new medications she may have on d/c, including a medication to help prevent further peptic ulers. Pt is very interested in taking a preventative medication that may also alleviate her long standing uppper abd pain that has come and gone for "years". Report to RN regarding my visit with pt. No ongoing needs identified but Palliative Care will remain available as needed.
[2018-09-19 13:12] LABS: Hematocrit 24.1 % (33.0-51.0); Hemoglobin 7.7 g/dL (11.5-16.0)
--- NOTE | 2018-09-19 16:03 | NUR ---
H.D. WAS STARTED AT APPROX. 1455 AND 1 UNIT PRBC'S HAS BEEN ORDERED RATHER THAN THE EARLIER 2 UNITS. PT RESTING WELL WITH H.D. AND VS NOTED. PT REMAINS ON IV GTT AMIODARONE AND WILL ASSESS GI STATUS FOR CHANGE TO PO TOLERATED.
--- NOTE | 2018-09-19 16:21 | NUR ---
Supported and affirmed Rita's bigg. She smiles easily and is very personable. She believes this illness is a temporary set-back and fully expects to return to her normal state of health soon. Rita responded well to direct selling counselor and prayer. No concerns presented. She was very complimentary of [facility] staff. I will remain available.
--- NOTE | 2018-09-19 18:05 | NUR ---
pt has rested well TODAY W/O S/S OF GI BLEEDING OF DISTRESS. PT NOTED AND HAS C/O "STOMACH CRAMPING" THAT INC. ANC DEC. T/O THE DAY. PT I/O NOTED AND IS STILL SOMEWHAT UNSURE IF SHE COULD REALLY TAKE PO AND IT NOT CAUSE N/V, SO WILL STAY WITH IVF AMIO. GTT AT 0.5 MG FOR NOW. PT TOLERATED H.D. WELL TODAY AND IMPROVED BP AFTER I UNIT AND H.D OF APPROX. 2 HOURS. PT REMAINS QUITE A/O AND COOP. WITH CARE.
[2018-09-19 19:36] LABS: Hematocrit 28.7 % (33.0-51.0); Hemoglobin 9.5 g/dL (11.5-16.0)
--- NOTE | 2018-09-19 19:50 | NUR ---
ASSUMED CARE PT RESTING IN ROOM, APPEARS TO BE COMFORTABLE. REPORT FROM DAY RN PT HAD NO ACUTE CHANGES IN STATUS T/O DAY. PT DID HAVE HEMODIALYSIS TODAY W/ 1 UNIT OF PRBCS. PT TOLERATED WELL. RESP EVEN UNLBAORED ON RA. PT HAS AMIODARONE GTT INFUSING ALONG WITH NS IN EJ IV. PT REPORTS HAVING ABD PAIN ON AND OFF T/O DAY. REQUESTING PAIN MEDS AT THIS TIME FOR PAIN. WILL MEDICATE PER EMAR. RECTAL TUBE IN PLACE, DRAINING WELL TO GRAVITY. PT DENIES OTHER NEEDS AT THIS TIME. VSS. CALL LIGHT IS IN REACH.
[2018-09-20 03:29] LABS: BASOPHILS ABSOLUTE AUTO 0.01 K/mm3 (0.00-0.23); BASOPHILS PERCENT AUTO 0 % (0-2); EOSINOPHILS ABSOLUTE AUTO 0.11 K/mm3 (0.00-0.68); EOSINOPHILS PERCENT AUTO 2 % (0-6); Hematocrit 25.9 % (33.0-51.0); Hemoglobin 8.5 g/dL (11.5-16.0); IMMATURE GRAN ABSOLUTE AUTO 0.05 K/mm3 (0.00-0.10); IMMATURE GRAN PERCENT AUTO 1 % (0-1); LYMPHOCYTES ABSOLUTE AUTO 0.71 K/mm3 (0.84-5.20); LYMPHOCYTES PERCENT AUTO 14 % (21-46); MONOCYTES ABSOLUTE AUTO 0.57 K/mm3 (0.16-1.47); MONOCYTES PERCENT AUTO 11 % (4-13); Mean Corpuscular HGB 30.9 pg (26.0-34.0); Mean Corpuscular HGB Conc 32.8 g/dL (31.5-36.5); Mean Corpuscular Volume 94 fL (80-100); Mean Platelet Volume 13.4 fL (9.1-12.4); NEUTROPHILS ABSOLUTE AUTO 3.68 K/mm3 (1.96-9.15); NEUTROPHILS PERCENT AUTO 72 % (41-73); Platelet Count 79 K/mm3 (150-400); RDW Coefficient Variation 17.5 % (11.7-14.2); RDW Standard Deviation 55.2 fL (35.1-46.3); Red Blood Cell Count 2.75 M/mm3 (3.80-5.20); White Blood Cell Count 5.13 K/mm3 (4.00-11.30)
[2018-09-20 03:43] LABS: Albumin, Blood 2.6 g/dL (3.4-5.0); Anion Gap 10 mmol/L (6-16); Blood Urea Nitrogen 47 mg/dL (8-24); Bun/Creatinine Ratio 8.8 (12.0-20.0); CO2, Blood 26 mmol/L (21-32); Calcium, Blood 6.9 mg/dL (8.5-10.1); Chloride, Blood 103 mmol/L (98-108); Creatinine, Blood 5.37 mg/dL (0.40-1.00); Glomerular Filtration Rate 8 (60-); Glucose, Blood 90 mg/dL (70-99); Magnesium, Blood 1.7 mg/dL (1.6-2.4); Phosphorus, Blood 4.7 mg/dL (2.5-4.9); Potassium, Blood 4.4 mmol/L (3.5-5.5); Sodium, Blood 139 mmol/L (136-145)
--- NOTE | 2018-09-20 06:41 | NUR ---
SHIFT SUMMARY PT IS RESTING IN ROOM COMFORTABLY AT THIS TIME. NO ACUTE CHANGES IN STATUS OVERNIGHT. PT DID COMPLAIN OF ABD PAIN AND REQUESTED MEDICATION FOR PAIN. PT WAS MEDICATED PER EMAR, PAIN REDUCED TO ACCEPTABLE LEVEL. RESP EVEN UNLBAORED ON RA W/ SATS >95% DENIES CP, OR SOB. FLEXISEAL TUBE IN PLACE DRAINING TO GRAVITY, STOOL BLACK IN COLOR, NO REDNESS NOTED. CONTINUED EDEMA AND WEEPING TO ALESSIA. ARM ELEVATED ON PILLOW FOR COMFORT. AMIODARONE AND NS GTT INFUSING IN LEFT EJ. PT HAS NO OTHER NEEDS AT THIS TIME. CALL LIGHT IS IN REACH. WILL CONTINUE TO MONITOR UNTIL SHIFT CHANGE.
--- NOTE | 2018-09-20 10:05 | NUR ---
0800...PT A/O AND NO CURRENT ABD PAIN. PT CONT TO HAVE LIQUID TARRY RETURN FROM RECTAL TUBE BUT DENIES AND NO EVIDENCE OF OTHER BLEEDING DURING NOC. PT AM H/H NOTED AND VS OVERALL IMPROVED FROM YESTERDAYS READING. ENCOURAGED PT WITH CHANGED TO PO AMIODARONE AND PT WILLNG THIS AM. PT REMAINS IN NSR.
--- NOTE | 2018-09-20 10:16 | NUR ---
0950 PT DOWN TO N.M. STUDY. ZHANE.
--- NOTE | 2018-09-20 10:54 | NUR ---
NEARING THE END OF N.M. STUDY AND PT HAS BEEN SLEEPING, VSS.
[2018-09-20 12:08] LABS: Hematocrit 28.2 % (33.0-51.0); Hemoglobin 9.3 g/dL (11.5-16.0)
--- NOTE | 2018-09-20 14:37 | NUR ---
PT C/O NAUSEA W/O EMESIS AND MEDICATED. PT INDICATES THAT THIS RELIEVES HER S/S.
--- NOTE | 2018-09-20 15:37 | NUR ---
LATE ENTRY... PT AMIODARONE GTT WAS STOPPED AT 0915 AND PT CHANGED TO PO AMIO. BEFORE GOING TO N.M. STUDY., SEE EMAR.
--- NOTE | 2018-09-20 16:23 | NUR ---
LATE ENRTY PT HAS BEEN IN SR WITH 1 DEGREE AV BLOCK. VS HAVE BEEN STABLE NOTED.
--- NOTE | 2018-09-20 18:44 | NUR ---
PT HAS CONT. TO HAVE MILD INTERMEITTENT ABD CRAMPING AND HOPING FOR SOME MEDICAL DIRECTION TO HOW TO IMPROVE THIS CHRONIC ABD. DISTRESS. VSS. NAUSEA HAS NOT PERSISTED THIS PM. NO NOTED EVIDENCE OF BLEEDING, FLEXISEAL HAS SLOWED THIS PM NOTED.
[2018-09-21 04:16] LABS: BASOPHILS ABSOLUTE AUTO 0.02 K/mm3 (0.00-0.23); BASOPHILS PERCENT AUTO 0 % (0-2); EOSINOPHILS ABSOLUTE AUTO 0.13 K/mm3 (0.00-0.68); EOSINOPHILS PERCENT AUTO 2 % (0-6); Hemoglobin 9.6 g/dL (11.5-16.0); IMMATURE GRAN ABSOLUTE AUTO 0.09 K/mm3 (0.00-0.10); IMMATURE GRAN PERCENT AUTO 1 % (0-1); LYMPHOCYTES ABSOLUTE AUTO 0.66 K/mm3 (0.84-5.20); LYMPHOCYTES PERCENT AUTO 10 % (21-46); MONOCYTES ABSOLUTE AUTO 0.72 K/mm3 (0.16-1.47); MONOCYTES PERCENT AUTO 11 % (4-13); Mean Corpuscular HGB 31.9 pg (26.0-34.0); Mean Corpuscular HGB Conc 33.1 g/dL (31.5-36.5); Mean Corpuscular Volume 96 fL (80-100); Mean Platelet Volume 12.6 fL (9.1-12.4); NEUTROPHILS ABSOLUTE AUTO 4.93 K/mm3 (1.96-9.15); NEUTROPHILS PERCENT AUTO 75 % (41-73); Platelet Count 103 K/mm3 (150-400); RDW Coefficient Variation 17.3 % (11.7-14.2); RDW Standard Deviation 56.9 fL (35.1-46.3); Red Blood Cell Count 3.01 M/mm3 (3.80-5.20); White Blood Cell Count 6.55 K/mm3 (4.00-11.30)
[2018-09-21 04:34] LABS: Albumin, Blood 2.7 g/dL (3.4-5.0); Anion Gap 12 mmol/L (6-16); Blood Urea Nitrogen 60 mg/dL (8-24); Bun/Creatinine Ratio 8.8 (12.0-20.0); CO2, Blood 23 mmol/L (21-32); Calcium, Blood 6.9 mg/dL (8.5-10.1); Chloride, Blood 103 mmol/L (98-108); Creatinine, Blood 6.84 mg/dL (0.40-1.00); Glomerular Filtration Rate 6 (60-); Glucose, Blood 78 mg/dL (70-99); Magnesium, Blood 1.8 mg/dL (1.6-2.4); Phosphorus, Blood 5.9 mg/dL (2.5-4.9); Potassium, Blood 4.7 mmol/L (3.5-5.5); Sodium, Blood 138 mmol/L (136-145)
--- NOTE | 2018-09-21 04:42 | NUR ---
SHIFT SUMMARY PT A&O X4, CALM AND COOPERATIVE. PT C/O "MILD, INTERMITTENT, CRAMPING" UPPER ABDOMINAL PAIN, TX'D X1 PER EMAR THIS SHIFT. LUNG SOUNDS CLEAR, DIM IN BASES. SPO2 > 92% ON RA. MONITOR SHOWS NSR, HR 60'S-70'S. MURMUR NOTED, PT STATES "I'VE HAD THAT SINCE I WAS A BABY." PULSES STRONG. RECTAL TUBE DRAINING BLACK TARRY STOOL PER GRAVITY. FISTULA TO AGUILA. TRACE PEDAL EDEMA NOTED. SCD'S IN PLACE. NS GTT INFUSING PER ORDERS. WILL CONTINUE TO MONITOR AND PROVIDE CARE UNTIL REPORT OFF TO DAY SHIFT RN.
--- NOTE | 2018-09-21 08:13 | NUR ---
Assumed Care: Assumed care of pt at approx 0700. VSS. In no apparent sign of distress. Pt is A&Ox4. Calls appropriately. Repositioning self, but needs some reminders. Denies any pain at this time, but c/o some abd pain that sets in approx 1hr before next dose of fentanyl is usually due. C/o a sore throat and mild cough post upper scope. Dr. Butler at bedside as well as Dr. Black this AM. Plan is for pt to have dialysis today. IV fluids stopped per Dr. Butler and Dr. Black. R arm puffy and wheeping - examined by Dr. Butler - no further orders except to remove tight coban wrap from R arm - done. Pt has flexiseal in place that is patent and draining. See shift assessment for detailed assessment. Pt currently resting in bed with call light within reach. Denies any further questions, complaints or reuests at this time. Will continue to monitor.
--- NOTE | 2018-09-21 13:55 | NUR ---
assumed care and comfort of this patient from barbara FERRARA in ICU. Pt. is out to dialysis shortly after arrival to PCU.
--- NOTE | 2018-09-21 18:27 | NUR ---
END OF SHIFT; PT TRANSFERRED FROM ICU LATE THIS AFTERNOON. SHE RECEIVED DIALYSIS AFTER TRANSFER AND WAS BACK TO PCU FOR DINNERTIME. SHE HAS PLEASANT AFFECT. REMAINS IN DROPLET PRECAUTIONS FOR CDIFF. FLEXISEAL IN PLACE. PT COMPLAINS OF NAUSEA AND SAID SHE ONLY FEELS LIKE SHE CAN EAT JELLO SINCE HER STOMACH IS VERY TENDER. WILL CONTINEUT MONITOR THIS PATIENT UNTIL REPORT AND HAND OFF TO NOC SHIFT RN.
[2018-09-22 04:39] LABS: BASOPHILS ABSOLUTE AUTO 0.02 K/mm3 (0.00-0.23); BASOPHILS PERCENT AUTO 0 % (0-2); EOSINOPHILS ABSOLUTE AUTO 0.08 K/mm3 (0.00-0.68); EOSINOPHILS PERCENT AUTO 1 % (0-6); Hemoglobin 9.6 g/dL (11.5-16.0); IMMATURE GRAN ABSOLUTE AUTO 0.09 K/mm3 (0.00-0.10); IMMATURE GRAN PERCENT AUTO 1 % (0-1); LYMPHOCYTES ABSOLUTE AUTO 0.64 K/mm3 (0.84-5.20); LYMPHOCYTES PERCENT AUTO 10 % (21-46); MONOCYTES ABSOLUTE AUTO 0.62 K/mm3 (0.16-1.47); MONOCYTES PERCENT AUTO 10 % (4-13); Mean Corpuscular HGB 30.3 pg (26.0-34.0); Mean Corpuscular Volume 95 fL (80-100); Mean Platelet Volume 12.2 fL (9.1-12.4); NEUTROPHILS PERCENT AUTO 77 % (41-73); Platelet Count 106 K/mm3 (150-400); RDW Coefficient Variation 16.9 % (11.7-14.2); RDW Standard Deviation 55.6 fL (35.1-46.3); Red Blood Cell Count 3.17 M/mm3 (3.80-5.20); White Blood Cell Count 6.35 K/mm3 (4.00-11.30)
[2018-09-22 04:58] LABS: Albumin, Blood 2.6 g/dL (3.4-5.0); Anion Gap 13 mmol/L (6-16); Blood Urea Nitrogen 41 mg/dL (8-24); Bun/Creatinine Ratio 7.8 (12.0-20.0); CO2, Blood 26 mmol/L (21-32); Chloride, Blood 100 mmol/L (98-108); Creatinine, Blood 5.23 mg/dL (0.40-1.00); Glomerular Filtration Rate 9 (60-); Glucose, Blood 66 mg/dL (70-99); Magnesium, Blood 1.9 mg/dL (1.6-2.4); Phosphorus, Blood 5.3 mg/dL (2.5-4.9); Potassium, Blood 4.3 mmol/L (3.5-5.5); Sodium, Blood 139 mmol/L (136-145)
--- NOTE | 2018-09-22 07:50 | NUR ---
SHIFT SUMMARY PATIENT ALERT AND ORIENTED X 3 THROUGHOUT SHIFT. SHE WAS VERY PLEASANT AND COOPERATIVE WITH VITALS AND ASSESSMENTS. PT HAD SOME COMPLAINTS OF ABDOMINAL PAIN EARLY IN SHIFT, THOUGH THIS WAS RESOLVED WITH ORDERED MEDICATIONS. PT SLEPT WELL MID SHIFT TO AM. SHE STATES THAT HER PAIN IS BETTER BUT SHE STILL FEELS THE SPASMS AT TIMES. SHE DENIED NEED FOR ANY PAIN MEDICATION THIS AM. PT VITALS WERE STABLE T/O SHIFT. SHE CONTINUES TO BE ON ROOM AIR WITH SATS IN THE MID 90'S. SHE DENIED ANY UNMET NEEDS, WAS ABLE TO APPROPRIATELY MAKE NEEDS KNOWN AND DEMONSTRATED SUCCESSFUL USE OF HER CALL LIGHT. CALL LIGHT WAS LEFT WITHIN REACH, BED IN THE LOWEST POSITION AND 2X SIDE RAILS IN PLACE FOR SAFETY. PT STATED THAT SHE WAS INTERESTED IN GETTING UP AND TAKING SOME STEPS TODAY TO TEST HER STRENGTH. PT WILL CONTINUE TO BE MONITORED UNTIL HANDOFF TO DAYSHIFT RN.
--- NOTE | 2018-09-22 11:22 | NUR ---
AM NOTE PT RESTING QUIETLY. VSS. PT REQUESTED MEDCIATION FOR ABD PAIN AND ZOFRAN FOR NAUSEA X1. EFFECTIVE. RECTAL TUBE DRAINING BROWN, THIN, WATERY STOOL. VSS. PT HAS NO OTHER COMPLAINTS AT THIS TIME. CONTINUE POT.
[2018-09-23 04:02] LABS: BASOPHILS ABSOLUTE AUTO 0.02 K/mm3 (0.00-0.23); BASOPHILS PERCENT AUTO 0 % (0-2); EOSINOPHILS ABSOLUTE AUTO 0.09 K/mm3 (0.00-0.68); EOSINOPHILS PERCENT AUTO 2 % (0-6); Hematocrit 28.9 % (33.0-51.0); Hemoglobin 9.2 g/dL (11.5-16.0); IMMATURE GRAN ABSOLUTE AUTO 0.05 K/mm3 (0.00-0.10); IMMATURE GRAN PERCENT AUTO 1 % (0-1); LYMPHOCYTES ABSOLUTE AUTO 0.59 K/mm3 (0.84-5.20); LYMPHOCYTES PERCENT AUTO 10 % (21-46); MONOCYTES ABSOLUTE AUTO 0.74 K/mm3 (0.16-1.47); MONOCYTES PERCENT AUTO 12 % (4-13); Mean Corpuscular HGB 30.2 pg (26.0-34.0); Mean Corpuscular HGB Conc 31.8 g/dL (31.5-36.5); Mean Corpuscular Volume 95 fL (80-100); Mean Platelet Volume 12.5 fL (9.1-12.4); NEUTROPHILS ABSOLUTE AUTO 4.69 K/mm3 (1.96-9.15); NEUTROPHILS PERCENT AUTO 76 % (41-73); Platelet Count 118 K/mm3 (150-400); RDW Coefficient Variation 16.6 % (11.7-14.2); RDW Standard Deviation 56.1 fL (35.1-46.3); Red Blood Cell Count 3.05 M/mm3 (3.80-5.20); White Blood Cell Count 6.18 K/mm3 (4.00-11.30)
[2018-09-23 04:19] LABS: Albumin, Blood 2.5 g/dL (3.4-5.0); Anion Gap 12 mmol/L (6-16); Blood Urea Nitrogen 57 mg/dL (8-24); Bun/Creatinine Ratio 8.4 (12.0-20.0); CO2, Blood 25 mmol/L (21-32); Calcium, Blood 6.7 mg/dL (8.5-10.1); Chloride, Blood 101 mmol/L (98-108); Creatinine, Blood 6.77 mg/dL (0.40-1.00); Glomerular Filtration Rate 6 (60-); Glucose, Blood 76 mg/dL (70-99); Magnesium, Blood 1.9 mg/dL (1.6-2.4); Phosphorus, Blood 6.5 mg/dL (2.5-4.9); Potassium, Blood 4.5 mmol/L (3.5-5.5); Sodium, Blood 138 mmol/L (136-145)
--- NOTE | 2018-09-23 08:20 | NUR ---
AM Assessment: Pt resting in bed at this time. LS diminished in bases. HR reg with very prominant murmur heard. Rectal tube draining a small amount of green/brown unformed stool. Will likely discontinue after dialysis. Fistula to AGUILA with good bruit/thrill. VSS. Pt states that she does have some abd cramping but that pain is tolerable at this time. Pt is concerned about cramping after breakfast and during dialysis. Will medicate per orders. Pt denies other needs. Will monitor.
--- NOTE | 2018-09-23 09:30 | NUR ---
Pt taken to dialysis. Will await return.
--- NOTE | 2018-09-23 13:42 | NUR ---
UPDATE: Pt brought back from dialysis by RN and [employer]. Pt doing well. VSS. C/O some abd pain and cramping. Will medicate with fentynal per orders. Denies other needs.
--- NOTE | 2018-09-23 19:32 | NUR ---
SHIFT SUMMARY; Pt sitting up in bed at this time. Rectal tube was discontinued this shift and pt tolerated well. No BM's since Rectal tube was discontinued. Pt had dialysis today and tolerated well. VSS this shift. Pt has had some abd pain and nausea intermitantly this shift. Pt was treated per orders and tolerated well. No other changes this shift. Report given to night RN.
--- NOTE | 2018-09-23 19:55 | NUR ---
PM NOTE. ASSUMED CARE OF PT APROX 1900, PT IS A&Ox4 AND SBA IN THE ROOM, PT WAS ADMITTED DUE TO GI BLEED AND IS IN ISOLATION DUE TO C.DIFF. PT HAS HAD 7 UNITS OF PRBCS THIS ADMISSION, HER H&H IS STABLE AT THIS TIME. HRR IN THE 70'S, PT HAS LOUD MURMUR. PT'S BP 146/57, TRACE EDEMA NOTED TO BLLE AND BUE. L/S CLEAR T/O AND DIM IN THE BASES, PT IS ON RA AT 96%. BT PRESENT AND HYPOACTIVE, ABD IS SLIGHTLY FIRM AND TENDER TO PALP. CALL LIGHT IN REACH, BED IS LOCKED AND LOW WILL CONTINUE TO MONITOR.
--- NOTE | 2018-09-23 22:37 | NUR ---
PT UPDATE... PT WAS UP AND WALKING IN THE ROOM W/SBA, GAIT BELT AND FWW. PT MADE 4 LAPS AROUND THE ROOM AND TOLERATED THIS WELL. PT WAS TOLD SHE WAS GOING TO BE MOVING UP TO THE MEDICAL FLOOR, REPORT WILL BE CALLED TO RN ASSUMING CARE OF PT. PT'S VS HAVE BEEN STABLE, PT DENIES ANY CHEST PAIN/PRESSURE, N/V OR SOB. NO BLACK/TARRY/BLOODY STOOLS HAVE BEEN NOTED. CALL LIGTH IN REACH, BED IS LOCKED AND LOW WILL CONTINUE TO MONITOR.
--- NOTE | 2018-09-23 22:49 | NUR ---
PT UPDATE... SBAR WAS GIVEN TO RN ASSUMEING CARE OF PT, PT BELONGINGS WERE TRANSFERED WITH THE PT. PT WAS TAKEN VIA W/C TO ROOM 309.
[2018-09-24 04:58] LABS: Hemoglobin 9.5 g/dL (11.5-16.0)
[2018-09-24 05:24] LABS: Albumin, Blood 2.9 g/dL (3.4-5.0); Anion Gap 12 mmol/L (6-16); Blood Urea Nitrogen 29 mg/dL (8-24); Bun/Creatinine Ratio 5.9 (12.0-20.0); CO2, Blood 27 mmol/L (21-32); Calcium, Blood 7.6 mg/dL (8.5-10.1); Chloride, Blood 98 mmol/L (98-108); Creatinine, Blood 4.91 mg/dL (0.40-1.00); Glomerular Filtration Rate 9 (60-); Glucose, Blood 78 mg/dL (70-99); Magnesium, Blood 1.9 mg/dL (1.6-2.4); Phosphorus, Blood 3.8 mg/dL (2.5-4.9); Potassium, Blood 3.8 mmol/L (3.5-5.5); Sodium, Blood 137 mmol/L (136-145)
--- NOTE | 2018-09-24 06:39 | NUR ---
SHIFT SUMMARY PT TRANSFERRED TO ROOM APPROX 2305. SBA C WALKER TO BED FROM W/C. C/O PAIN IN BACK AND ABD AND MEDICATED PER EMAR X2. NO STOOL SINCE AFTER TRANSFERRING UP HERE. SHE WAS ABLE TO DOZE OFF AFTER PAIN MED ADMINISTRATIONS. CALL LIGHT IN REACH
--- NOTE | 2018-09-24 17:52 | NUR ---
SHIFT SUMMARY PATIENT REPORTS FEELING MUCH BETTER TODAY COMPARED TO PREVIOUS DAYS. ABDOMINAL PAIN HAS BEEN AVERAGE 4/10 ON DAY SHIFT 09/24-PATIENT STATES THIS TOLERABLE. PAIN MEDICATION NEEDED ONCE. PATIENT STATED HER STOOL IS NOW SOLID, SOFT BUT NOT WATERY IT HAS BEEN. NO NAUSEA. TOLERATING FULL LIQUIDS WITHOUT INCREASING PAIN. UP AL WITH FWW AROUND ROOM. SHE IS STRONG AND STEADY ON FEET- PATIENT STATES THIS IS ALSO AN IMPROVMENT. FULLY A&O
[2018-09-25 05:17] LABS: Hematocrit 31.9 % (33.0-51.0)
[2018-09-25 05:32] LABS: Albumin, Blood 2.9 g/dL (3.4-5.0); Anion Gap 10 mmol/L (6-16); Blood Urea Nitrogen 37 mg/dL (8-24); Bun/Creatinine Ratio 5.8 (12.0-20.0); CO2, Blood 30 mmol/L (21-32); Calcium, Blood 7.4 mg/dL (8.5-10.1); Chloride, Blood 95 mmol/L (98-108); Creatinine, Blood 6.42 mg/dL (0.40-1.00); Glomerular Filtration Rate 7 (60-); Glucose, Blood 79 mg/dL (70-99); Magnesium, Blood 1.9 mg/dL (1.6-2.4); Phosphorus, Blood 4.2 mg/dL (2.5-4.9); Sodium, Blood 135 mmol/L (136-145)
[2018-09-25] MEDS ORDERED: Amiodarone HCl200 MG PO (09:58)
[2018-09-25] MEDS ORDERED: Vsl#3 Capsule1 EACH PO (10:01)
[2018-09-25] MEDS ORDERED: Vancocin HCl125 MG PO (10:01)
[2018-09-25] MEDS ORDERED: OMEPRAZOLE MAGN20 MG PO (10:02)
--- NOTE | 2018-09-25 14:29 | NUR ---
PATIENT DISCHARGE: PATIENT DISCHARGED TO HOME THIS SHIFT. MEDICATION RECONCILIATION COMPLETED; MED LIST CALLED & FAXED TO [facility]. DISCHARGE EDUCATION COMPLETED WITH PATIENT AND SPOUSE. PATIENT TRANSPORTED TO EXIT BY [facility] STAFF WITH WHEELCHAIR AT 1425. PATIENT DEPARTED [facility] VIA PRIVATE AUTO.
== END 2018-09-25 14:21 | disposition home or self-care (01) | DRG 377 ==
LOC: EDBD 18:22 → ER 18:22 → ICUE 19:19 → ICUW 19:19 → MEDS 19:19 → ICUE 21:00 → ICUW 09-17 11:55 → ICUE 09-18 11:00 → PCU 09-21 13:30 → MEDS 09-23 23:03
PROVIDERS: Emergency Medicine; Family Medicine; Hospitalist; Internal Medicine; Internal Medicine Gastroenterology; Internal Medicine Nephrology; ADMIT Internal Medicine
PROC: 5A1D70Z Performance of Urinary Filtration, Intermittent, Less than 6 Hours Per Day (ICD-10-PCS; principal; 2018-09-16)
PROC: 30233N1 Transfusion of Nonautologous Red Blood Cells into Peripheral Vein, Percutaneous Approach (ICD-10-PCS; 2018-09-16)
PROC: 0D578ZZ Destruction of Stomach, Pylorus, Via Natural or Artificial Opening Endoscopic (ICD-10-PCS; 2018-09-17)
PROC: 0W3P8ZZ Control Bleeding in Gastrointestinal Tract, Via Natural or Artificial Opening Endoscopic (ICD-10-PCS; 2018-09-18)
DX: K31.811 Angiodysplasia of stomach and duodenum with bleeding (principal); I21.A1 Myocardial infarction type 2; N18.6 End stage renal disease; R57.8 Other shock; C64.9 Malignant neoplasm of unspecified kidney, except renal pelvis; D62 Acute posthemorrhagic anemia; Q61.3 Polycystic kidney, unspecified; A04.72 Enterocolitis due to Clostridium difficile, not specified as recurrent; I12.0 Hypertensive chronic kidney disease with stage 5 chronic kidney disease or end stage renal disease; E87.1 Hypo-osmolality and hyponatremia; K26.4 Chronic or unspecified duodenal ulcer with hemorrhage; K22.6 Gastro-esophageal laceration-hemorrhage syndrome; Q27.8 Other specified congenital malformations of peripheral vascular system; K22.11 Ulcer of esophagus with bleeding; Z99.2 Dependence on renal dialysis; Z85.528 Personal history of other malignant neoplasm of kidney; Z90.5 Acquired absence of kidney; I77.0 Arteriovenous fistula, acquired; E78.5 Hyperlipidemia, unspecified; E86.0 Dehydration; E87.5 Hyperkalemia; I95.9 Hypotension, unspecified; E83.51 Hypocalcemia; I48.0 Paroxysmal atrial fibrillation; D69.6 Thrombocytopenia, unspecified; I35.0 Nonrheumatic aortic (valve) stenosis; E86.9 Volume depletion, unspecified; Z88.8 Allergy status to other drugs, medicaments and biological substances; E88.09 Other disorders of plasma-protein metabolism, not elsewhere classified
CPT/HCPCS: 36415; 36430; 78278; 80047; 80048; 80053; 80069; 82330; 83735; 84100; 84484; 85014; 85018; 85025; 85027; 85610; 86850; 86900; 86901; 86923; 87324; 87507; 93005; 93010; 93306; 96365; 97116; 97162; 97530; 99285-25; A9560; C9113; J0282; J0610; J0881; J1160; J1430; J1815; J2370; J2405; J2597; J2765; J3010; J7030; J7040; J7050; J7060; J7120; P9016; P9041; P9046